=== PATIENT | female | born 1955 | race Caucasian/White ===

== ENCOUNTER → 2017-02-25 | Outpatient (CLI) | payer OTHER ==
[2015-12-29 11:01] VITALS: BP 140/80
[~2017-02-25] MED LIST: ACET325T9 PO; GUAI120L35 PO; LISI-334 PO; MELO7.5T29 PO
== END | disposition home or self-care (01) ==
LOC: PMGWOUND 13:38
PROVIDERS: ATTEND Emergency Medicine Undersea and Hyperbaric Medicine
DX: S60.562D Insect bite (nonvenomous) of left hand, subsequent encounter (principal); M81.0 Age-related osteoporosis without current pathological fracture; F41.9 Anxiety disorder, unspecified; F32.9 Major depressive disorder, single episode, unspecified; Z87.891 Personal history of nicotine dependence; W57.XXXD Bitten or stung by nonvenomous insect and other nonvenomous arthropods, subsequent encounter
CPT/HCPCS: 99214

== ENCOUNTER → 2017-03-04 | Outpatient (CLI) | payer OTHER ==
[2015-12-29 11:01] VITALS: BP 140/80
== END | disposition home or self-care (01) ==
LOC: PMGWOUND 10:57
PROVIDERS: ATTEND Emergency Medicine Undersea and Hyperbaric Medicine
DX: S60.562D Insect bite (nonvenomous) of left hand, subsequent encounter (principal); F41.9 Anxiety disorder, unspecified; F32.9 Major depressive disorder, single episode, unspecified; Z87.891 Personal history of nicotine dependence; W57.XXXD Bitten or stung by nonvenomous insect and other nonvenomous arthropods, subsequent encounter
CPT/HCPCS: 99214

== ENCOUNTER 2019-02-21 17:13 | Emergency (ER) | payer OTHER ==
[~2019-02-21] VITALS: Ht 154.9 cm; Wt 61.2 kg
[2019-02-21 17:24] VITALS: BP 176/85
--- NOTE | 2019-02-21 17:32 | PHYS DOC ---
Past Medical History Past Medical History: Arthritis, Hypertension, Other Additional Past Medical Histor: CHRONIC BACK PAIN (DEANNA SCHAEFER APRN) Past Surgical History: No Surgical History (DEANNA SCHAEFER APRN) Alcohol Use: None Drug Use: None (DEANNA SCHAEFER APRN) Adult General Chief Complaint Chief Complaint: LACERATION/AVULSION HPI HPI 63-year-old female presents to ER for complaints of accidental laceration to right index finger while using a kitchen knife. Patient denies any other injury. She reports injury occurred just prior to arrival to ER. She is up-to-date on tetanus within the past 5 years. (DEANNA SCHAEFER APRN) Review of Systems Review of Systems Constitutional: Denies fatigue Musculoskeletal: Reports tenderness at lac site rt index finger Integument: Reports laceration rt index finger Neurologic: Denies focal weakness or sensory changes [] All other systems were reviewed and found to be within normal limits, except as documented in this note. (DEANNA SCHAEFER APRN) Allergies Allergies Allergies Coded Allergies Type Severity Reaction Last Updated Verified Sulfa (Sulfonamide Antibiotics) Allergy Intermediate Hives 12/28/15 Yes latex Allergy Intermediate rash 12/28/15 Yes (GAGE COREAS MD) Physical Exam Physical Exam Constitutional: Well developed, well nourished, no acute distress, non-toxic appearance. [] HENT: Normocephalic, atraumatic, oropharynx moist, nose normal. [] Eyes: Pupils equal, conjunctiva normal, no discharge. [] Neck: Normal range of motion, supple Cardiovascular: Heart rate regular Lungs & Thorax: Resp. equal/nonlabored Skin: Warm, dry Extremities: No cyanosis, no clubbing, ROM intact rt hand/fingers, no edema. Flexor tendon intact against resistance. 2+ right radial. Cap refill brisk in all right fingers. Small laceration at distal joint medial right index finger-no swelling, ecchymosis, or active bleeding. Neurologic: Alert and oriented X 3, normal motor function, normal sensory function, no focal deficits noted. [] Psychologic: Affect normal, judgement normal, mood normal. [] (DEANNA SCHAEFER APRN) Current Patient Data Vital Signs Vital Signs Date Time Temp Pulse Resp B/P (MAP) Pulse Ox O2 Delivery O2 Flow Rate FiO2 6/9/19 17:24 98.0 73 16 176/85 (115) 98 Room Air 98.0 (GAGE COREAS MD) EKG EKG [] (DEANNA SCHAEFER APRN) Radiology/Procedures Radiology/Procedures Laceration Repair by me: Anesthesia: None Location: Medial side of rt index at distal joint Tendon/Joint/Nerves: No injury Foreign body: None detected after irrigation and exploration Technique: Dermabond Complexity: No subcutaneous sutures/mucosal repair/edge excision Post Closure Length: 1 cm Patient's bleeding was easily controlled in the department and there is no indication of anemia. No evidence of compartment syndrome, neurologic injury, vascular injury, open joint, tendon laceration, or foreign body. Patient is appropriate for outpatient follow up. 48 hour wound check. Scar minimization instructions given. (DEANNA SCHAEFER APRN) Course & Med Decision Making Course & Med Decision Making Patient was evaluated in the ER for accidental laceration to right index finger. Wound was found to be superficial following wound cleanse. Dermabond was used for laceration repair. Patient remained PMS intact in right upper extremity. [facility] provide aluminum splint for finger for home wound protection. Education provided on signs and symptoms to return to ER. Discharge instructions were discussed. Patient to follow-up with primary care physician if symptoms persist or with any concerns. (DEANNA SCHAEFER APRN) Course & Med Decision Making Staff Physician Addendum: I was working in the ER during the course of this patient's visit. I was available for consultation as needed, but I was not directly involved in the care of this patient. (GAGE COREAS MD) Dragon Disclaimer Dragon Disclaimer This electronic medical record was generated, in whole or in part, using a voice recognition dictation system. (DEANNA SCHAEFER APRN) Departure Departure Impression: Primary Impression: Laceration Disposition: 01 HOME, SELF-CARE Condition: STABLE Referrals: RJ VASQUEZ MD (PCP) Patient Instructions: Laceration Care, Adult, Stitches, Pauline or Skin Adhesive Strips, [id number] Additional Instructions: Monitor wound for sites of infection. Follow-up with your primary doctor with any concerns. Tylenol and/or ibuprofen as needed for pain as directed on container. DEANNA SCHAEFER APRN Feb 21, 2019 17:32 GAGE COREAS MD Feb 23, 2019 18:12
== END 2019-02-21 17:59 | disposition home or self-care (01) ==
LOC: ER 17:13
DX: S61.210A Laceration without foreign body of right index finger without damage to nail, initial encounter (principal); I10 Essential (primary) hypertension; G89.29 Other chronic pain; Z88.2 Allergy status to sulfonamides; W26.0XXA Contact with knife, initial encounter; Y93.89 Activity, other specified; Y92.89 Other specified places as the place of occurrence of the external cause; Y99.8 Other external cause status; Z91.040 Latex allergy status
CPT/HCPCS: 12001; 99283

== ENCOUNTER → 2019-06-22 | Outpatient (CLI) | payer OTHER ==
--- NOTE | 2019-06-22 15:23 | RAD ---
DATE: 06/22/2019 EXAM: MAMMO GRACE SCREENING BILATERAL HISTORY: Asymptomatic screening mammogram. COMPARISON: 12/06/2011, 08/30/2014 This study was interpreted with the benefit of Computerized Aided Detection (CAD). Breast Density: SCATTERED The breast parenchyma shows scattered fibroglandular densities. Breast parenchyma level B. FINDINGS: Bilateral CC and MLO views of the breasts were performed. Bilateral breast tomosynthesis was performed in CC and MLO projections. Right breast: There are no suspicious microcalcifications, masses or areas of architectural distortion. Left breast: There are no suspicious microcalcifications, masses or areas of architectural distortion. Findings are stable from prior mammogram. IMPRESSION: Negative bilateral mammogram BI-RADS CATEGORY: 1 NEGATIVE RECOMMENDED FOLLOW-UP: 12M 12 MONTH FOLLOW-UP PQRS compliance statement: Patient information was entered into a reminder system with a target due date 06/22/2020 for the next mammogram. Mammography is a sensitive method for finding small breast cancers, but it does not detect them all and is not a substitute for careful clinical examination. A negative mammogram does not negate a clinically suspicious finding and should not result in delay in biopsying a clinically suspicious abnormality. "Our facility is accredited by the [employer] Mammography Program."
== END | disposition home or self-care (01) ==
LOC: MAMMO 08:10
PROVIDERS: ATTEND Family Medicine
DX: Z12.31 Encounter for screening mammogram for malignant neoplasm of breast (principal)
CPT/HCPCS: 77063; 77067